=== PATIENT | male | born 1960 | race Hispanic/Latino ===

== ENCOUNTER 2018-06-13 08:00 | Day surgery (SDC) | payer MEDICAID ==
[~2018-06-13] VITALS: Ht 162.6 cm; Wt 22.1 kg
[~2018-06-13 08:00] MED LIST: ESOM40CA PO; LACT10SO PO; RIFA550T PO; SODIUM CHLORIDE 0.9% 1000ML 1,000 ML IV ONE; SUCR1TAB2 PO; TAMS0.4C32 PO; TRAM50TA4 PO
[2018-06-13 08:43] VITALS: BP 102/67
[2018-06-13] MEDS ORDERED: DICY20TA11 PO (09:18)
[2018-06-13] MEDS ORDERED: HYOSCYAMINE (09:18)
[2018-06-13] MEDS ORDERED: LORA0.5T2 PO (09:18)
[2018-06-13] MEDS ORDERED: ONDA4TAB10 PO (09:18)
[2018-06-13] MEDS ORDERED: PROPOFOL 10 MG/ML 20ML VIAL IV ONE (11:24)
[2018-06-13 11:44] VITALS: BP 101/68
[2018-06-13 11:49] VITALS: BP 104/65
[2018-06-13 11:53] VITALS: BP 112/70
[2018-06-13 11:57] VITALS: BP 116/68
== END 2018-06-13 12:13 | disposition home or self-care (01) ==
LOC: DAH 08:00 → SUH 08:00
PROVIDERS: ATTEND Internal Medicine Gastroenterology
DX: K29.50 Unspecified chronic gastritis without bleeding (principal); K21.0 Gastro-esophageal reflux disease with esophagitis; K76.6 Portal hypertension; K31.89 Other diseases of stomach and duodenum; K70.31 Alcoholic cirrhosis of liver with ascites; D64.9 Anemia, unspecified; K72.90 Hepatic failure, unspecified without coma; K57.30 Diverticulosis of large intestine without perforation or abscess without bleeding; R23.4 Changes in skin texture; R56.9 Unspecified convulsions; Z79.899 Other long term (current) drug therapy; Z90.89 Acquired absence of other organs; Z98.890 Other specified postprocedural states; Z80.0 Family history of malignant neoplasm of digestive organs
CPT/HCPCS: 43239; 88305; 88312; 88342; A4606; J2704; J7030